=== PATIENT | female | born 1975 | race American Indian/Alaskan Native ===

== ENCOUNTER 2017-07-14 17:30 | Emergency (ER) | payer OTHER, BC ==
[2017-07-14 18:00] VITALS: BP 157/100
[2017-07-14] MEDS ORDERED: MORPHINE IV ONE (18:23)
[2017-07-14] MEDS ORDERED: NACL 0.9% 1000 ML 1,000 ML IV ONE (18:23)
[2017-07-14] MEDS ORDERED: ZOFRAN IV ONE (18:23)
[2017-07-14] MEDS ORDERED: BENADRYL IV ONE (18:51)
[2017-07-14] MEDS ORDERED: BENADRYL PO ONE (18:51)
[2017-07-14] MEDS ORDERED: BENADRYL ONE (18:52)
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
[2017-07-14] MEDS ORDERED: ATIVAN IV ONE (19:19)
[2017-07-14] MEDS ORDERED: SUBLIMAZE IV ONE (19:20)
--- NOTE | 2017-07-14 19:21 | Cat Scan Report ---
FINAL REPORT PROCEDURE: CT HEAD/BRAIN WO CON TECHNIQUE: Computerized tomography of the head was performed without contrast material. HISTORY: headache COMPARISON: No prior studies are available for comparison. FINDINGS: There is no CT evidence of intracranial mass, hemorrhage, acute territorial infarction, or hydrocephalus. The intracranial arteries are symmetric in density. Calvarium is intact. Visualized paranasal sinuses and mastoids are aerated IMPRESSION: No CT evidence of acute intracranial abnormality
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
== END 2017-07-14 20:10 | disposition home or self-care (01) ==
LOC: ED 17:30
DX: G44.209 Tension-type headache, unspecified, not intractable (principal); M54.2 Cervicalgia; E86.0 Dehydration; Z91.018 Allergy to other foods; V89.2XXA Person injured in unspecified motor-vehicle accident, traffic, initial encounter; Y93.89 Activity, other specified; Y92.89 Other specified places as the place of occurrence of the external cause; Y99.8 Other external cause status
CPT/HCPCS: 70450; 72040; 93005; 93010; 96361; 96374; 96375; 99285; J1200; J2060; J2270; J2405; J3010; J7030

== ENCOUNTER 2021-08-27 07:54 | Emergency (ER) | payer SELFPAY ==
[2021-08-27] MEDS ORDERED: IBUPROFEN 600 MG TAB PO ONE (09:44)
[2021-08-27] MEDS ORDERED: ACETAMINOPHEN 325 MG TAB PO ONE (09:44)
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
[2021-08-27 11:12] VITALS: BP 156/104
== END 2021-08-27 11:12 | disposition home or self-care (01) ==
LOC: ED 07:54
DX: S16.1XXA Strain of muscle, fascia and tendon at neck level, initial encounter (principal); S43.401A Unspecified sprain of right shoulder joint, initial encounter; M62.838 Other muscle spasm; Z98.890 Other specified postprocedural states; Z91.02 Food additives allergy status; V89.2XXA Person injured in unspecified motor-vehicle accident, traffic, initial encounter; Y93.89 Activity, other specified; Y92.89 Other specified places as the place of occurrence of the external cause; Y99.8 Other external cause status
CPT/HCPCS: 72125; 99284